=== PATIENT | female | born 1960 | race Caucasian/White ===

== ENCOUNTER 2019-06-02 08:53 | Day surgery (SDC) | payer BC ==
[2019-05-28 11:52] VITALS: BMI 31.8
[~2019-06-02 08:53] MED LIST: LACTATED RINGERS 1,000 ML IV SCH; LIDOCAINE 1% 20 ML VIAL (10MG/ML) FOR IV START INTRADERMA PRN
[2019-06-02 09:16] VITALS: TEMP 98.3
[2019-06-02] MEDS ORDERED: PROPOFOL 10 MG/ML 20 ML VIAL IV ONE (09:57)
[2019-06-02] MEDS ORDERED: LIDOCAINE 1% INJ 10MG/ML (20 ML MDV) ONE (09:57)
--- NOTE | 2019-06-02 09:59 | P.GSHP ---
History of Present Illness H&P Date: 06/02/19 Chief Complaint: GI bleed This is a 58-year-old female referred from. [facility]. Patient's complaints of rectal bleeding. She presents today for colonoscopy. Past Medical History Past Medical History: Hyperlipidemia, Hypertension, Thyroid Disorder Additional Past Medical History / Comment(s): + COLOGARD TEST History of Any Multi-Drug Resistant Organisms: None Reported Past Surgical History: Tubal Ligation Past Anesthesia/Blood Transfusion Reactions: No Reported Reaction Smoking Status: Former smoker - Past Family History Brother(s) Family Medical History: Deep Vein Thrombosis (DVT) Son(s) Family Medical History: Deep Vein Thrombosis (DVT) Medications and Allergies Home Medications Medication Instructions Recorded Confirmed Type Atorvastatin [Lipitor] 10 mg PO HS 05/28/19 06/02/19 History Levothyroxine Sodium [Synthroid] 75 mcg PO DAILY 05/28/19 06/02/19 History Losartan [Cozaar] 25 mg PO HS 05/28/19 06/02/19 History Allergies Allergy/AdvReac Type Severity Reaction Status Date / Time No Known Allergies Allergy Verified 06/02/19 09:12 Surgical - Exam Vital Signs Temp Pulse Resp BP Pulse Ox 98.3 F 92 16 151/104 97 06/02/19 09:15 06/02/19 09:15 06/02/19 09:15 06/02/19 09:15 06/02/19 09:15 - General well developed, well nourished, no distress - Eyes PERRL - ENT normal pinna - Neck no masses - Respiratory normal expansion - Cardiovascular Rhythm: regular - Abdomen Abdomen: soft, non tender Assessment and Plan Assessment: GI bleed. We'll perform colonoscopy.
--- NOTE | 2019-06-02 10:27 | P.OP ---
Date of Procedure: 06/02/19 Preoperative Diagnosis: GI bleed Postoperative Diagnosis: External hemorrhoids Diverticulosis Redundant colon Procedure(s) Performed: Colonoscopy Anesthesia: MAC Surgeon: Arun Smith Pathology: none sent Condition: stable Disposition: PACU Description of Procedure: The patient's placed on the endoscopy table in the lateral position. She received IV sedation. Digital rectal exam was performed which revealed internal and external hemorrhoids. The possible colonoscope was then placed patient anus and passed throughout the entire colon. The ileocecal valve was visually is. The cecum, ascending and transverse colon appeared normal. The colon was quite redundant. In the descending and sigmoid colon there was moderate diverticulosis. There is no evidence of diverticulitis. Scope was then brought back the rectum and this appeared normal. Scope withdrawn for patient.
[2019-06-02 10:41] VITALS: BP 140/80; PULSE 67; RESP 18
== END 2019-06-02 11:00 | disposition home or self-care (01) ==
LOC: ORWHC2ENDO 08:53
PROVIDERS: ATTEND Surgery
DX: K64.4 Residual hemorrhoidal skin tags (principal); K64.8 Other hemorrhoids; K57.30 Diverticulosis of large intestine without perforation or abscess without bleeding; I10 Essential (primary) hypertension; E78.5 Hyperlipidemia, unspecified; E07.9 Disorder of thyroid, unspecified; Z87.891 Personal history of nicotine dependence; Z79.890 Hormone replacement therapy; Z79.899 Other long term (current) drug therapy; Z98.51 Tubal ligation status; Z82.49 Family history of ischemic heart disease and other diseases of the circulatory system
CPT/HCPCS: 45378; J2001; J2704

== ENCOUNTER → 2019-10-03 | Outpatient (CLI) | payer BC ==
--- NOTE | 2019-10-06 10:32 | MM ---
Reason for exam: screening (asymptomatic). Last mammogram was performed 5 years and 11 months ago. History: Patient is postmenopausal. Physical Findings: A clinical breast exam by your physician is recommended on an annual basis and results should be correlated with mammographic findings. MG Screening Mammo w CAD Bilateral CC and MLO view(s) were taken. Prior study comparison: October 29, 2013, [facility] DIGITAL LEFT BREAST MAMMOGRAM w/CAD. October 17, 2013, bilateral digital screening mammo w/CAD. There are scattered fibroglandular densities. There is no discrete abnormality. No significant changes when compared with prior studies. ASSESSMENT: Negative, BI-RAD 1 RECOMMENDATION: Routine screening mammogram of both breasts in 1 year.
== END | disposition home or self-care (01) ==
LOC: RADMAMWWP 09:04
PROVIDERS: ATTEND Family Medicine
DX: Z12.31 Encounter for screening mammogram for malignant neoplasm of breast (principal)
CPT/HCPCS: 77067

== ENCOUNTER → 2020-07-29 | Outpatient (CLI) | payer BC ==
--- NOTE | 2020-07-29 10:59 | XR ---
EXAMINATION TYPE: XR chest 2V DATE OF EXAM: 07/29/2020 COMPARISON: None HISTORY: 59 year-old female shortness of breath TECHNIQUE: Frontal and lateral views FINDINGS: Heart normal size. Mild elongation of the thoracic aorta. Some strandy atelectasis at the left base. No jose consolidation or pleural effusion. IMPRESSION: Some strandy left basilar atelectasis. No definite acute process.
== END | disposition home or self-care (01) ==
LOC: RADXRMAIN 09:41
PROVIDERS: ATTEND Family Medicine
DX: R06.02 Shortness of breath (principal); A48.1 Legionnaires' disease
CPT/HCPCS: 71046

== ENCOUNTER → 2020-09-15 | Outpatient (CLI) | payer BC ==
--- NOTE | 2020-09-15 12:14 | US ---
EXAMINATION TYPE: US pelvis complete transvag DATE OF EXAM: 09/15/2020 COMPARISON: NONE CLINICAL HISTORY: N95.0 Post menopausal bleeding. Intermittent spotting for 2 months TECHNIQUE: Transvaginal (TV) and Transabdominal (TA) . Transabdominal sonographic images of the pel vis were acquired. Transvaginal sonographic images were medically necessary to better assess the fol lowing anatomy: endometrium and ovaries Date of LMP: unknown EXAM MEASUREMENTS: Uterus: 9.8 x 3.5 x 4.4 cm Endometrial Stripe: 0.4 cm Right Ovary: 2.5 x 0.9 x 2.3 cm Left Ovary: 2.3 x 1.4 x 1.4 cm 1. Uterus: Anteverted heterogeneous, possible hypoechoic area posteriorly = 2.5cm 2. Endometrium: appears wnl 3. Right Ovary: appears wnl 4. Left Ovary: appears wnl 5. Bilateral Adnexa: wnl 6. Posterior cul-de-sac: wnl IMPRESSION: Questionable fibroid may be better assessed with pelvic MRI.
== END | disposition home or self-care (01) ==
LOC: RADUSWWP 10:11
PROVIDERS: ATTEND Family Medicine
DX: N95.0 Postmenopausal bleeding (principal)
CPT/HCPCS: 76830; 76856

== ENCOUNTER 2020-11-25 16:33 | Observation (INO) | payer BC ==
[2020-11-25] MEDS ORDERED: ASPIRIN 81 MG PO STA (17:14)
--- NOTE | 2020-11-25 17:17 | ED ---
General Adult HPI - General Chief complaint: Chest Pain Stated complaint: Chest pain/going down both arms Time Seen by Provider: 11/25/20 17:00 Source: patient Mode of arrival: wheelchair Limitations: no limitations - History of Present Illness Initial comments: Dictation was produced using [employer] dictation software. please excuse any grammatical, word or spelling errors. This patient was cared for during a federal and state declared state of e mergency secondary to Covid 19 Chief Complaint: 60-year-old feel presents with chest pain History of Present Illness: 60-year-old female she was told by the nurse practitioner's primary care physician's office come to the emergency department immediately for ACS type chest pain symptoms. Patient states today she has been having chest pressure to her substernal area. She states it radiated to bilateral upper extremities. States she did feel some clamminess however no diaphoresis per she has not had any history of MIs or cardiac disease. She has history of hypertension and high cholesterol. No history of smoking. She states that she's been having on and off episodes symptoms of chest pain. She denies any chest pain currently otherwise she feels well. No shortness of breat h. No family history of cardiac disease. She denies that the pain as sharp and does not radiate to her back. She denies any numbness and paresthesias to her extremities. No shortness of breath or symptoms of pleurisy. The ROS documented in this emergency department record has been reviewed and confirmed by me. Those systems with pertinent positive or negative responses have been documented in the HPI. All other systems are other negative and/or noncontributory. PHYSICAL EXAM: General Impression: Alert and oriented x3, not in acute distress HEENT: Normocephalic atraumatic, extra-ocular movements intact, pupils equal and reactive to light bilaterally, mucous membranes moist. Cardiovascular: Heart regular rate and rhythm Chest: Able to complete full sentences, no retractions, no tachypnea Abdomen: abdomen soft, non-tender, non-distended, no organomegaly Musculoskeletal: Pulses present and equal in all extremities, no peripheral edema Motor: no focal deficits noted Neurological: CN II-XII grossly intact, no focal motor or sensory deficits noted Skin: Intact with no visualized rashes Psych: Normal affect and mood ED course: 60-year-old female presents with chest pain concerning for acute coronary syndrome. Signs upon arrival shows blood pressure 180/100, rest of vital signs within acceptable limits. Patient's symptomatology and physical examination is not consistent with pulmonary embolus or aortic dissection. Symptoms are concerning for acute coronary syndrome. Initial EKG is unremarkable. Patient reports no symptoms at bedside. Laboratory evaluation obtained. CBC, coag panel, metabolic panel is unremarkable. First troponin is negative. Chest x-ray is nonacute. Patient reevaluated at 6:30 PM stable medical condition. She is well-appearing and has not complaining of any chest pain or shortness of breath at this time. Patient will be admitted for serial troponins, medical monitoring and cardiology consultation. Patient is agreeable to disposition. EKG interpretation: Ventricular rate 79, sinus rhythm,. Interval 142, QRS 96, QTC 467. No TX prolongation, no QTC prolongation, no ST or T-wave changes noted. No old EKG for comparison. Overall, this EKG is unremarkable - Related Data Home Medications Medication Instructions Recorded Confirmed Atorvastatin [Lipitor] 10 mg PO HS 05/28/19 11/25/20 Levothyroxine Sodium [Synthroid] 75 mcg PO DAILY 05/28/19 11/25/20 Aspirin 325 mg PO ONETIME PRN 11/25/20 11/25/20 Azithromycin [Zithromax Z-pack (6 See Taper PO DAILY 11/25/20 11/25/20 tabs)] Escitalopram [Lexapro] 10 mg PO HS 11/25/20 11/25/20 Hydrochlorothiazide 12.5 mg PO DAILY 11/25/20 11/25/20 [hydroCHLOROthiazide] Losartan Potassium [Cozaar] 100 mg PO DAILY 11/25/20 11/25/20 Allergies Allergy/AdvReac Type Severity Reaction Status Date / Time No Known Allergies Allergy Verified 11/25/20 17:48 Review of Systems ROS Statement: Those systems with pertinent positive or pertinent negative responses have been documented in the HPI. ROS Other: All systems not noted in ROS Statement are negative. Past Medical History Past Medical History: Hyperlipidemia, Hypertension, Thyroid Disorder Additional Past Medical History / Comment(s): + COLOGARD TEST History of Any Multi-Drug Resistant Organisms: None Reported Past Surgical History: Tubal Ligation Past Anesthesia/Blood Transfusion Reactions: No Reported Reaction Past Psychological History: Anxiety Smoking Status: Never smoker Past Alcohol Use History: None Reported Past Drug Use History: None Reported - Past Family History Brother(s) Family Medical History: Deep Vein Thrombosis (DVT) Son(s) Family Medical History: Deep Vein Thrombosis (DVT) General Exam Limitations: no limitations Course Vital Signs 11/25/20 16:40 Temperature 98.2 F Pulse Rate 100 Respiratory 18 Rate Blood Pressure 180/100 O2 Sat by Pulse 97 Oximetry Medical Decision Making - Lab Data Result diagrams: 11/25/20 17:16 11/25/20 17:16 Lab Results 11/25/20 11/25/20 11/25/20 Range/Units 17:16 17:16 17:16 WBC 5.2 (3.8-10.6) k/uL RBC 5.27 (3.80-5.40) m/uL Hgb 15.9 (11.4-16.0) gm/dL Hct 47.3 H (34.0-46.0) % MCV 89.8 (80.0-100.0) fL MCH 30.1 (25.0-35.0) pg MCHC 33.5 (31.0-37.0) g/dL RDW 12.6 (11.5-15.5) % Plt Count 269 (150-450) k/uL MPV 7.5 Neutrophils % 64 % Lymphocytes % 26 % Monocytes % 7 % Eosinophils % 2 % Basophils % 1 % Neutrophils # 3.3 (1.3-7.7) k/uL Lymphocytes # 1.4 (1.0-4.8) k/uL Monocytes # 0.3 (0-1.0) k/uL Eosinophils # 0.1 (0-0.7) k/uL Basophils # 0.0 (0-0.2) k/uL PT 10.3 (9.0-12.0) sec INR 1.0 (<1.2) APTT 23.7 (22.0-30.0) sec Sodium 138 (137-145) mmol/L Potassium 3.9 (3.5-5.1) mmol/L Chloride 103 (98-107) mmol/L Carbon Dioxide 25 (22-30) mmol/L Anion Gap 10 mmol/L BUN 16 (7-17) mg/dL Creatinine 0.82 (0.52-1.04) mg/dL Est GFR (CKD-EPI)AfAm 89 (>60 ml/min/1.73 sqM) Est GFR (CKD-EPI)NonAf 77 (>60 ml/min/1.73 sqM) Glucose 112 H (74-99) mg/dL Calcium 10.0 (8.4-10.2) mg/dL Magnesium 2.3 (1.6-2.3) mg/dL Total Bilirubin 0.7 (0.2-1.3) mg/dL AST 27 (14-36) U/L ALT 27 (4-34) U/L Alkaline Phosphatase 135 H (38-126) U/L Troponin I (0.000-0.034) ng/mL Total Protein 7.8 (6.3-8.2) g/dL Albumin 4.5 (3.5-5.0) g/dL Lipase 54 (23-300) U/L 11/25/20 Range/Units 17:16 WBC (3.8-10.6) k/uL RBC (3.80-5.40) m/uL Hgb (11.4-16.0) gm/dL Hct (34.0-46.0) % MCV (80.0-100.0) fL MCH (25.0-35.0) pg MCHC (31.0-37.0) g/dL RDW (11.5-15.5) % Plt Count (150-450) k/uL MPV Neutrophils % % Lymphocytes % % Monocytes % % Eosinophils % % Basophils % % Neutrophils # (1.3-7.7) k/uL Lymphocytes # (1.0-4.8) k/uL Monocytes # (0-1.0) k/uL Eosinophils # (0-0.7) k/uL Basophils # (0-0.2) k/uL PT (9.0-12.0) sec INR (<1.2) APTT (22.0-30.0) sec Sodium (137-145) mmol/L Potassium (3.5-5.1) mmol/L Chloride (98-107) mmol/L Carbon Dioxide (22-30) mmol/L Anion Gap mmol/L BUN (7-17) mg/dL Creatinine (0.52-1.04) mg/dL Est GFR (CKD-EPI)AfAm (>60 ml/min/1.73 sqM) Est GFR (CKD-EPI)NonAf (>60 ml/min/1.73 sqM) Glucose (74-99) mg/dL Calcium (8.4-10.2) mg/dL Magnesium (1.6-2.3) mg/dL Total Bilirubin (0.2-1.3) mg/dL AST (14-36) U/L ALT (4-34) U/L Alkaline Phosphatase (38-126) U/L Troponin I <0.012 (0.000-0.034) ng/mL Total Protein (6.3-8.2) g/dL Albumin (3.5-5.0) g/dL Lipase (23-300) U/L Disposition Clinical Impression: Chest pain Disposition: ADMITTED IP TO THIS HOSP Condition: Fair Referrals: Nick Marlow DO [Primary Care Provider] - 1-2 days Decision Time: 18:34
[2020-11-25 17:27] LABS: Basophils % (A) 1 %; Eosinophils # (A) 0.1 k/uL (0-0.7); Eosinophils % (A) 2 %; HCT 47.3 % (34.0-46.0); HGB 15.9 gm/dL (11.4-16.0); Lymphocytes # (A) 1.4 k/uL (1.0-4.8); Lymphocytes % (A) 26 %; MCH 30.1 pg (25.0-35.0); MCHC 33.5 g/dL (31.0-37.0); MCV 89.8 fL (80.0-100.0); Mean Platelet Volume 7.5; Monocytes # (A) 0.3 k/uL (0-1.0); Monocytes % (A) 7 %; Neutrophils # (A) 3.3 k/uL (1.3-7.7); Neutrophils % (A) 64 %; Platelet Count 269 k/uL (150-450); RBC 5.27 m/uL (3.80-5.40); RDW 12.6 % (11.5-15.5); WBC 5.2 k/uL (3.8-10.6)
[2020-11-25 17:35] LABS: Partial Thromboplastin Time 23.7 sec (22.0-30.0); Prothrombin Time 10.3 sec (9.0-12.0)
--- NOTE | 2020-11-25 17:35 | XR ---
EXAMINATION TYPE: XR chest 2V DATE OF EXAM: 11/25/2020 COMPARISON: 07/29/2020. HISTORY: Chest pain. TECHNIQUE: Frontal and lateral views of the chest are obtained. FINDINGS: There is no focal air space opacity, pleural effusion, or pneumothorax seen. Tortuous aort a seen. The cardiac silhouette size is within normal limits. The osseous structures are intact. IMPRESSION: No acute cardiopulmonary process.
[2020-11-25 17:37] LABS: Albumin 4.5 g/dL (3.5-5.0); Magnesium 2.3 mg/dL (1.6-2.3); Potassium 3.9 mmol/L (3.5-5.1); Total Bilirubin 0.7 mg/dL (0.2-1.3); Total Protein 7.8 g/dL (6.3-8.2)
[2020-11-25] MEDS ORDERED: NITROGLYCERIN SL TABS 0.4 MG TAB SUBLINGUAL PRN (18:32)
[2020-11-26 07:30] LABS: Glucose,Whole Blood 100 mg/dL (75-99)
[2020-11-26 07:34] VITALS: TEMP 98
[2020-11-26 09:00] VITALS: RESP 16
[2020-11-26] MEDS ORDERED: ASPIRIN 325 MG TAB PO SCH (09:00)
[2020-11-26] MEDS ORDERED: DOBUTamine DRIP for NUC MED 500 MG in DEXTROSE/WATER 1 250ML.BAG IV PRN (09:28)
[2020-11-26] MEDS ORDERED: PANTOPRAZOLE 40 MG/10 ML VIAL IVP SCH (09:45)
--- NOTE | 2020-11-26 10:00 | P.HPIM ---
History of Present Illness H&P Date: 11/26/20 Chief Complaint: Chest pain This is a 60-year-old female with past medical history of hyperlipidemia, hypertension, hypothyroidism, anxiety presents to the ER with complaints of chest pain. Patient had seen her PCP on Sunday, hydrochlorothiazide added to her medication regimen. Developed some anxiety over her new medication and later developed fluctuating chest pain, described as a "squeezing chest sensation" initiating in the right-sided chest, going across to the left side and down bilateral arms accompanied by shortness of breath, lightheadedness and dizziness, no diaphoresis. Denies cough, congestion. Denies nausea vomiting or diarrhea. Denies abdominal pain. Denies syncope. Chest x-ray reporting no acute cardiopulmonary process, EKG sinus rhythm with PACs, left axis deviation. Troponin is negative 3. Hematology, coagulation profiles unremarkable. Sodium 138, potassium 3.9, BUN 16, creatinine 0.82, glucose 112. Magnesium 2.3. Alk phos 135. Coronavirus not detected. Afebrile, normal WBC. Uncontrolled hypertension on admission with blood pressure 180/100, heart rate 80-100. Respiratory rate 16-18, maintaining O2 sats in the high 90s on room air. Review of Systems ROS Statement: Those systems with pertinent positive or pertinent negative responses have been documented in the HPI. ROS Other: All systems not noted in ROS Statement are negative. Past Medical History Past Medical History: Hyperlipidemia, Hypertension, Thyroid Disorder Additional Past Medical History / Comment(s): + COLOGARD TEST History of Any Multi-Drug Resistant Organisms: None Reported Past Surgical History: Tubal Ligation Past Anesthesia/Blood Transfusion Reactions: No Reported Reaction Past Psychological History: Anxiety Smoking Status: Never smoker Past Alcohol Use History: None Reported Past Drug Use History: None Reported - Past Family History Brother(s) Family Medical History: Deep Vein Thrombosis (DVT) Son(s) Family Medical History: Deep Vein Thrombosis (DVT) Medications and Allergies Home Medications Medication Instructions Recorded Confirmed Type Atorvastatin [Lipitor] 10 mg PO HS 05/28/19 11/25/20 History Levothyroxine Sodium [Synthroid] 75 mcg PO DAILY 05/28/19 11/25/20 History Aspirin 325 mg PO ONETIME PRN 11/25/20 11/25/20 History Azithromycin [Zithromax Z-pack (6 See Taper PO DAILY 11/25/20 11/25/20 History tabs)] Escitalopram [Lexapro] 10 mg PO HS 11/25/20 11/25/20 History Hydrochlorothiazide 12.5 mg PO DAILY 11/25/20 11/25/20 History [hydroCHLOROthiazide] Losartan Potassium [Cozaar] 100 mg PO DAILY 11/25/20 11/25/20 History Allergies Allergy/AdvReac Type Severity Reaction Status Date / Time No Known Allergies Allergy Verified 11/25/20 17:48 Physical Exam Vitals: Vital Signs Temp Pulse Pulse Resp BP BP Pulse Ox 11/26/20 08:58 80 16 129/85 96 11/26/20 08:40 87 18 129/84 96 11/26/20 07:32 98 F 79 18 141/86 97 11/26/20 06:14 78 16 134/89 97 11/25/20 22:00 75 16 125/94 98 11/25/20 19:22 88 16 161/99 97 11/25/20 16:40 98.2 F 100 18 180/100 97 Intake and Output 11/25/20 11/26/20 11/26/20 22:59 06:59 14:59 Other: Weight 86.183 kg PHYSICAL EXAM: VITAL SIGNS: [As above] GENERAL: Sitting up in stretcher, no acute distress, mild anxiety HEENT: Conjunctivae normal. eyes normal. NECK: No JVD. No thyroid enlargement. No LNs CARDIOVASCULAR: S1, S2 regular. No murmur RESPIRATION: Breath sounds diminished in the bases. No rhonchi or crackles. No bronchial breathing. ABDOMEN: Soft, nontender . No guarding. no masses palpable. No ascites, No hepatosplenomegaly.Bowel sounds heard. LEGS: No edema. no swelling PSYCHIATRY: Alert and oriented X3, mood and affect normal. NERVOUS SYSTEM: Cranial N 2-12 grossly normal. Moves all 4 limbs. No focal deficits. Strength and sensation grossly intact.. Skin: Warm and dry, no rash Lymphatic system. No LN neck axilla. Results CBC & Chem 7: 11/25/20 17:16 11/25/20 17:16 Labs: Abnormal Lab Results - Last 24 Hours (Table) 11/25/20 11/25/20 11/26/20 Range/Units 17:16 17:16 07:29 Hct 47.3 H (34.0-46.0) % Glucose 112 H (74-99) mg/dL POC Glucose (mg/dL) 100 H (75-99) mg/dL Alkaline Phosphatase 135 H (38-126) U/L Assessment and Plan Assessment: Chest pain, ruling out acute coronary syndrome Hypertension, uncontrolled on admission Hyperlipidemia Anxiety Plan: Continue on current medication regime ,monitoring and symptomatic treatment. Cardiology consult in place. Potential discharge home later this afternoon, pending cardiology recommendations. The impression and plan of care has been dictated as directed. : I performed a history and examination of this patient, discussed the same with the dictator. I agree with the dictator's note ,documented as a scribe. Any additional findings or plans will be noted.
--- NOTE | 2020-11-26 10:30 | CONS ---
CONSULTATION Mrs. Neves is a 60-year-old female with history of hyperlipidemia who presented to the emergency room with symptoms of chest discomfort. The discomfort occurred at rest and lasted for couple hours, was not associated with any other symptoms. She denies any dizziness or palpitation. She denies any syncope. She has no peripheral edema. She is not very active physically, but has no significant exertional chest discomfort. Her breathing is stable. She has no prior history of cardiac disease. She is pain free at the time my evaluation. She has no recent cardiac workup. She has a history of hyperlipidemia. She is a nonsmoker, nondiabetic and has a history of hypertension. MEDICATIONS: Her medications at home include Lipitor 10 mg daily, levothyroxine, Lexapro 10 mg daily, hydrochlorothiazide 12.5 mg daily, losartan 100 mg daily and aspirin once a day. REVIEW OF SYSTEMS: RESPIRATORY SYSTEM: She has no documented history of recent wheezing or cough. No history of documented obstructive lung disease. GI SYSTEM: No recent GI bleeding. No peptic ulcer disease. SYSTEM: No dysuria or hematuria. NERVOUS SYSTEM: No stroke or seizure. PHYSICAL EXAMINATION: A 60-year-old female, alert, oriented, in no apparent distress. Blood pressure 129/80 with the heart rate in the 80s. HEAD: Normocephalic. EYES: Sclerae anicteric. NECK: Good carotid upstroke. No bruit. No jugular venous distention. LUNGS: Clear to auscultation. HEART: Regular rate and rhythm. S1, S2. No S3. No rub or gallop. ABDOMEN: Soft and nontender. Positive bowel sounds. No organomegaly. EXTREMITIES: No edema. Intact distal pulses. LAB DATA: Lab data revealed a troponin of less than 0.012 for 3 samples. Her EKG revealed sinus mechanism with no acute ST-segment changes. Her potassium 3.9. BUN and creatinine 16 and 0.82. Hemoglobin of 15.9. Her chest x-ray shows no acute infiltrate. IMPRESSION: 1. Chest discomfort of unclear etiology, atypical for ischemic heart disease. 2. Hypertension. 3. Hyperlipidemia. RECOMMENDATION: I recommend proceeding with an echocardiogram and dobutamine stress echo to further evaluate her status and guide her treatment. Depending on the results of testing, further recommendation will be made. Thank you for this consult. We will follow with you. MMODL / IJN: [id number] /
[2020-11-26 11:07] LABS: Chol/HDL Ratio 2.81
--- NOTE | 2020-11-26 12:01 | ECHOF ---
Referral Reason:cp MEASUREMENTS -------- HEIGHT: 160.0 cm WEIGHT: 86.2 kg BP: RVIDd: 3.2 cm (< 3.3) IVSd: 1.1 cm (0.6 - 1.1) LVIDd: 4.5 cm (3.9 - 5.3) LVPWd: 1.0 cm (0.6 - 1.1) IVSs: 1.2 cm LVIDs: 3.1 cm LVPWs: 1.4 cm LA Diam: 3.5 cm (2.7 - 3.8) LAESV Index (A-L): 16.31 ml/m Ao Diam: 3.0 cm (2.0 - 3.7) AV Cusp: 1.6 cm (1.5 - 2.6) MV EXCURSION: 11.106 mm (> 18.000) MV EF SLOPE: 38 mm/s (70 - 150) EPSS: 1.0 cm MV E Gregg: 0.52 m/s MV DecT: 260 ms MV A Gregg: 1.04 m/s MV E/A Ratio: 0.50 RAP: 5.00 mmHg RVSP: 15.03 mmHg FINDINGS -------- Sinus rhythm. This was a technically adequate study. LV size, wall thickness and systolic function are normal, with an EF greater than 55%. The left gaby tricular size is normal. The diastolic filling pattern is normal for the age of the patient 9.59. The right ventricle is normal in size. Normal LA size by volume 22+/-6 ml/m2. The right atrial size is normal. The aortic valve is trileaflet, and appears structurally normal. No aortic stenosis or regurgitation. The mitral valve is normal. Mild mitral regurgitation is present. The tricuspid valve appears structurally normal. Mild tricuspid regurgitation present. Right vent ricular systolic pressure is normal at < 35 mmHg. There is no pulmonic regurgitation present. The aortic root size is normal. There is no pericardial effusion. CONCLUSIONS -------- 1. LV size, wall thickness and systolic function are normal, with an EF greater than 55%. 2. Normal LA size by volume 22+/-6 ml/m2. 3. The aortic valve is trileaflet, and appears structurally normal. No aortic stenosis or regurgitati on. 4. Mild mitral regurgitation is present. 5. Mild tricuspid regurgitation present. 6. There is no pericardial effusion. STUDY LEAD: Mag Wong RDCS
[2020-11-26 14:05] VITALS: BP 132/78; PULSE 61
[2020-11-26] MEDS ORDERED: ESCITALOPRAM 10 MG TAB PO SCH (21:00)
[2020-11-26] MEDS ORDERED: ATORVASTATIN 10 MG TAB PO SCH (21:00)
[2020-11-27] MEDS ORDERED: LEVOTHYROXINE 75 MCG TAB PO SCH (06:30)
[2020-11-27] MEDS ORDERED: ASPIRIN 81 MG PO SCH (09:00)
[2020-11-27] MEDS ORDERED: hydroCHLOROthiazide 12.5 MG CAP PO SCH (09:00)
[2020-11-27] MEDS ORDERED: LOSARTAN 50 MG TAB PO SCH (09:00)
--- NOTE | 2020-11-29 07:58 | ECHOS ---
STRESS ECHOCARDIOGRAM LUMASON: N/A Vial INDICATIONS: Chest pain MEDICATIONS: BASELINE HEART RATE: 64 BASELINE BLOOD PRESSURE: 104/71 MAXIMUM HEART RATE: 136 MAXIMUM BLOOD PRESSURE: 137/68 85% MPHR: 134 100% MPHR: 158 METS: N/A MAXIMUM STAGE REACHED: 3 TOTAL EXERCISE TIME: 11:10 infusion time CLINICAL INFORMATION: Baseline rhythm is sinus mechanism, rate of 64, left axis deviation, poor R progression. Baseline blood pressure 104/71 mmHg. Patient received infusion of dobutamine per protocol, peak rate 136 beats per minute which is equal to 86% maximum predicted heart rate. Peak blood pressure 137/68 mmHg. Electrocardiograph monitoring revealed no evidence of diagnostic ischemic ST deviation. Baseline echocardiogram revealed normal wall motion. At peak infusion, there was normal wall motion augmentation with no hypokinesis or dyskinesis. CONCLUSION: 1. Normal electrocardiograph response to dobutamine infusion. 2. Normal stress echocardiogram with no evidence of stress-induced ischemia. MMODL / IJN: [id number] /
== END 2020-11-26 14:51 | disposition home or self-care (01) ==
LOC: EC 16:33 → 6NMEDSUR 18:32
PROVIDERS: ADMIT Family Medicine; ATTEND Family Medicine
DX: R07.89 Other chest pain (principal); I10 Essential (primary) hypertension; E78.5 Hyperlipidemia, unspecified; F41.9 Anxiety disorder, unspecified; E78.00 Pure hypercholesterolemia, unspecified; E03.9 Hypothyroidism, unspecified; R06.02 Shortness of breath; R42 Dizziness and giddiness; R19.5 Other fecal abnormalities; Z79.890 Hormone replacement therapy; Z79.82 Long term (current) use of aspirin; Z79.899 Other long term (current) drug therapy; Z98.51 Tubal ligation status; Z20.828 Contact with and (suspected) exposure to other viral communicable diseases; Z82.49 Family history of ischemic heart disease and other diseases of the circulatory system
CPT/HCPCS: 96374; 99285; 36415; 93005 ×2; 93306; 93351; 80061; 80053; 83690; 83735; 84484; 85025; 85610; 85730; 87635; 71046; G0378 ×2; J1250; C9113

== ENCOUNTER 2023-07-20 16:30 | Emergency (ER) | payer BC ==
[2023-07-20 17:05] VITALS: TEMP 98.2
[2023-07-20] MEDS ORDERED: KETOROLAC 15 MG/ML 1 ML VIAL IM STA (18:42)
--- NOTE | 2023-07-20 19:23 | CT ---
EXAMINATION TYPE: CT brain cspine wo con CT DLP: 1424.3 mGycm, Automated exposure control for dose reduction was used. DATE OF EXAM: 07/20/2023 7:13 PM COMPARISON: None. CLINICAL INDICATION:Female, 62 years old with history of fall on thinners; pain after fall. RT black eye TECHNIQUE: Brain: Multiple axial CT images of the brain were obtained without IV contrast. Cspine: Axial CT images from the skull base to the inferior aspect of T2 we obtained without intraven ous contrast. Coronal and sagittal reformatted images were also reviewed. FINDINGS: Brain: Extra-axial spaces: No abnormal extra-axial fluid collections. Ventricular system: Within normal limits Cerebral parenchyma: No acute intraparenchymal hemorrhage or mass effect. The hernández-white junction is well differentiated. Cerebellum: Unremarkable. Mass effect: No evidence of midline shift. Intracranial vasculature: unremarkable Soft tissues: Normal. Calvarium/osseous structures: No depressed skull fracture. Paranasal sinuses and mastoid air cells: Clear. Visualized orbits: Orbital contents are intact. Periorbital soft tissue swelling on the right orbit. Cervical spine: Fracture: None. Osseous structures: Multilevel degenerative disc disease changes with endplate spurring and disc oste ophyte complex's. Vertebral alignment: Within normal limits. Spinal canal/Neural Foramina: Disc osteophyte complexes at C5-C6 with at least mild spinal canal sten osis. Facet joint uncovertebral joint arthropathy scattered throughout the cervical spine with varyin g degrees of neural foraminal stenosis. Neck soft tissues: Prevertebral soft tissues are within normal limits. Other: The airway is patent. The lung apices are clear. IMPRESSION: 1. No acute intracranial process. 2. Right periorbital soft tissue edema/hematoma without evidence of fracture. The globes intact. 3. No evidence of cervical spine fracture. 4. Mild multilevel degenerative disc disease.
--- NOTE | 2023-07-20 19:42 | XR ---
EXAMINATION TYPE: XR wrist complete RT, XR hand complete RT DATE OF EXAM: 07/20/2023 7:20 PM CLINICAL INDICATION:Female, 62 years old with history of s/p fall, pain; [facility] COMPARISON: None TECHNIQUE: right wrist and hand was examined in the. Frontal, navicular, lateral, and oblique. FINDINGS/IMPRESSION: Findings suggestive nondisplaced intra-articular radial fracture including the radial styloid process . Best appreciated on lateral view. No additional fractures. There is soft tissue swelling.
[2023-07-20] MEDS ORDERED: LIDOCAINE 2%-EPI 1:100,000 20 ML VIAL SQ STA (19:52)
--- NOTE | 2023-07-20 19:59 | ED ---
Fall HPI - General Chief Complaint: Fall Stated Complaint: Fall,Hit Head-No Thinners Time Seen by Provider: 07/20/23 18:30 Source: patient Mode of arrival: ambulatory - History of Present Illness Initial Comments: 62-year-old female presenting to the ED with a chief complaint of fall. Patient states that she lost her footing and fell forward onto concrete. Patient did hit her head however reports that she was able to catch herself with her hands. Now notes a laceration above her right eye with some bruising, headache, right wrist pain. No LOC at this time. No other injuries at this time. Per at bedside, patient is acting appropriately. No nausea or vomiting. No chest pain or shortness of breath. No other complaints. - Related Data Home Medications Medication Instructions Recorded Confirmed Atorvastatin [Lipitor] 10 mg PO HS 05/28/19 11/25/20 Levothyroxine Sodium [Synthroid] 75 mcg PO DAILY 05/28/19 11/25/20 Aspirin 325 mg PO ONETIME PRN 11/25/20 11/25/20 Azithromycin [Zithromax Z-pack (6 See Taper PO DAILY 11/25/20 11/25/20 tabs)] Escitalopram [Lexapro] 10 mg PO HS 11/25/20 11/25/20 Losartan Potassium [Cozaar] 100 mg PO DAILY 11/25/20 11/25/20 hydroCHLOROthiazide 12.5 mg PO DAILY 11/25/20 11/25/20 Previous Rx's Medication Instructions Recorded Acetaminophen Tab [Tylenol] 500 mg PO Q6H #30 tablet 07/20/23 Ibuprofen 600 mg PO Q6H #30 tab 07/20/23 Allergies Allergy/AdvReac Type Severity Reaction Status Date / Time No Known Allergies Allergy Verified 07/20/23 16:57 Review of Systems ROS Statement: Those systems with pertinent positive or pertinent negative responses have been documented in the HPI. ROS Other: All systems not noted in ROS Statement are negative. Past Medical History Past Medical History: Hyperlipidemia, Hypertension, Thyroid Disorder Additional Past Medical History / Comment(s): + COLOGARD TEST History of Any Multi-Drug Resistant Organisms: None Reported Past Surgical History: Tubal Ligation Past Anesthesia/Blood Transfusion Reactions: No Reported Reaction Past Psychological History: Anxiety Smoking Status: Never smoker Past Alcohol Use History: None Reported Past Drug Use History: None Reported - Past Family History Brother(s) Family Medical History: Deep Vein Thrombosis (DVT) Son(s) Family Medical History: Deep Vein Thrombosis (DVT) General Exam Limitations: no limitations General appearance: alert, in no apparent distress Head exam: Present: other (No vaca signs or raccoons eyes) Eye exam: Present: PERRL, EOMI, other (Periorbital ecchymosis and swelling with approximately 3 cm laceration above the right eye brow) Neck exam: Present: other (No midline cervical spinal tenderness to palpation.) Respiratory exam: Present: normal lung sounds bilaterally Cardiovascular Exam: Present: regular rate, normal rhythm GI/Abdominal exam: Present: soft Extremities exam: Present: other (Strength and sensation equal and symmetric in bilateral upper and lower extremities.) Neurological exam: Present: alert, oriented X3 Skin exam: Present: warm, dry Course Vital Signs 07/20/23 16:54 Temperature 98.2 F Pulse Rate 78 Respiratory 20 Rate Blood Pressure 137/83 O2 Sat by Pulse 99 Oximetry Procedures - Laceration Laceration #1 Site: face Size (cm): 3 Description: linear Depth: simple, single layer Anesthetic Used: lidocaine 2%, without epi Anesthesia Technique: local infiltration Amount (mls): 2 Type of Sutures: nylon Size of Sutures: 6-0 Number of Sutures: 3 Technique: simple, interrupted Patient Tolerated Procedure: well, no complications - Orthopedic Splinting/Casting Injury #1 Upper Extremity Immobilizer: volar splint Additional Comments: Neurovascularly intact after splint placement. Medical Decision Making - Medical Decision Making Was pt. sent in by a medical professional or institution (, PA, INSTALLMENT DEALER, urgent care, hospital, or shelter...) When possible be specific @ -No Did you speak to anyone other than the patient for history (EMS, parent, family, police, friend...)? What history was obtained from this source @ -Spoke to the patient's who reports that the patient is acting her normal self. Did you review nursing and triage notes (agree or disagree)? Why? @ -I reviewed and agree with nursing and triage notes Were old charts reviewed (outside hosp., previous admission, EMS record, old EKG, old radiological studies, urgent care reports/EKG's, shelter records)? Report findings @ -No old charts were reviewed Differential Diagnosis (chest pain, altered mental status, abdominal pain women, abdominal pain men, vaginal bleeding, weakness, fever, dyspnea, syncope, headache, dizziness, GI bleed, back pain, seizure, CVA, palpatations, mental health, musculoskeletal)? @ -Acute fracture, acute bleed. This is not meant to be an all-inclusive list. EKG interpreted by me (3pts min.). @ -None X-rays interpreted by me (1pt min.). @ -X-ray interpreted by me. X-ray of the right wrist/hand significant for nondisplaced radius fracture. CT interpreted by me (1pt min.). @ -None done U/S interpreted by me (1pt. min.). @ -None done What testing was considered but not performed or refused? (CT, X-rays, U/S, labs)? Why? @ -None What meds were considered but not given or refused? Why? @ -None Did you discuss the management of the patient with other professionals (professionals i.e. , PA, INSTALLMENT DEALER, lab, RT, psych nurse, high school social studies teacher, camp coordinator, teacher, targeting acquisition officer, rn case management)? Give summary @ -No Was smoking cessation discussed for >3mins.? @ -No Was critical care preformed (if so, how long)? @ -No Were there social determinants of health that impacted care today? How? (Homelessness, low income, unemployed, alcoholism, drug addiction, transportation, low edu. Level, literacy, decrease access to med. care, long-term, rehab)? @ -No Was there de-escalation of care discussed even if they declined (Discuss DNR or withdrawal of care, Hospice)? DNR status @ -No What co-morbidities impacted this encounter? (DM, HTN, Smoking, COPD, CAD, Cancer, CVA, ARF, Chemo, Hep., AIDS, mental health diagnosis, sleep apnea, morbid obesity)? @ -None Was patient admitted / discharged? Hospital course, mention meds given and route, prescriptions, significant lab abnormalities, going to OR and other pertinent info. @ -Discharge 62-year-old female presenting status post mechanical fall now with complaints of headache and right wrist pain. CT brain and C-spine showed no evidence of bleed or other acute finding. X-ray of the wrist and hand is significant for nondisplaced radius fracture. Placed in volar splint. Patient had laceration above right eyebrow. This was also repaired. Please see procedure notes for further details. Tetanus status up-to-date. Discharged home with referral to orthopedics. Discussed return precautions patient verbalizes agreement. Undiagnosed new problem with uncertain prognosis? @ -No Drug Therapy requiring intensive monitoring for toxicity (Heparin, Nitro, Insulin, Cardizem)? @ -No Were any procedures done? @ -No Diagnosis/symptom? @ -s/p mechanical fall, laceration, nondisplaced right radius fracture. Acute, or Chronic, or Acute on Chronic? @ -Acute Uncomplicated (without systemic symptoms) or Complicated (systemic symptoms)? @ -Uncomplicated Side effects of treatment? @ -No Exacerbation, Progression, or Severe Exacerbation? @ -No Poses a threat to life or bodily function? How? (Chest pain, [place], [place], pneumonia, PE, COPD, DKA, ARF, appy, cholecystitis, CVA, Diverticulitis, Homicidal, Suicidal, threat to staff... and all critical care pts) @ -No Disposition Clinical Impression: Radius fracture, Laceration Disposition: HOME SELF-CARE Condition: Good Additional Instructions: Please return to the Emergency Department if symptoms worsen or any other concerns. Please return in 4-5 days for suture removal. Please follow up with orthopedics. Prescriptions: Ibuprofen 600 mg PO Q6H #30 tab Acetaminophen Tab [Tylenol] 500 mg PO Q6H #30 tablet Is patient prescribed a controlled substance at d/c from ED?: No Referrals: Nick Marlow DO [Primary Care Provider] - 1-2 days Time of Disposition: 20:50
[2023-07-20] MEDS ORDERED: BACITRACIN OINT 1 EACH PACKET TOPICAL ONE (20:50)
[2023-07-20] MEDS ORDERED: ACET/COD 300 MG/30 MG STARTER PACK 6 TAB BTL PO STA (20:50)
[2023-07-20 21:20] VITALS: BP 123/81; PULSE 67; RESP 18
== END 2023-07-20 21:15 | disposition home or self-care (01) ==
LOC: EC 16:30
DX: S52.514A Nondisplaced fracture of right radial styloid process, initial encounter for closed fracture (principal); S01.111A Laceration without foreign body of right eyelid and periocular area, initial encounter; I10 Essential (primary) hypertension; E07.9 Disorder of thyroid, unspecified; E78.5 Hyperlipidemia, unspecified; F41.9 Anxiety disorder, unspecified; Z79.890 Hormone replacement therapy; Z79.82 Long term (current) use of aspirin; Z79.899 Other long term (current) drug therapy; W18.09XA Striking against other object with subsequent fall, initial encounter
CPT/HCPCS: 73110; 73130; 72125; 70450; 12013; 99284; 96372; J1885

== ENCOUNTER → 2023-07-25 | Outpatient (CLI) | payer BC ==
--- NOTE | 2023-07-25 13:07 | CT ---
EXAMINATION TYPE: CT wrist RT wo con DATE OF EXAM: 07/25/2023 COMPARISON: Radiograph 07/20/2023 HISTORY: 62-year-old female fall, evaluate fracture of right wrist. [id number] UNSP FRACTURE OF NAVICUL AR BONE OF RIGHT WRIST, INIT TECHNIQUE: Contiguous axial scanning of the right wrist without IV contrast. Coronal and sagittal rec onstructions performed. 3-D reconstructions generated on a dedicated independent workstation. CT DLP: 110.10 mGycm Automated exposure control for dose reduction was used. FINDINGS: Small cystic change at the ulnar proximal aspect of the lunate bone. Tiny corticated ossicle adjacent to the ulnar styloid process could represent an accessory ossicle or sequela of old injury. There is a oblique fracture involving the radial styloid process with intra-articular extension to th e radioscaphoid joint. No significant incongruence of the articular surface. Separation up to 3 mm, a xial image 36. There is moderate degenerative change of the first CMC and triscaphe joints. Slight prominence to the scapholunate interval could represent an underlying ligamentous sprain. No additional acute fractures identified. The patient is in a fiberglass cast. IMPRESSION: 1. OBLIQUE FRACTURE INVOLVING THE RADIAL STYLOID PROCESS WITH INTRA-ARTICULAR EXTENSION ALONG THE RAD IOSCAPHOID JOINT. NO SIGNIFICANT ARTICULAR SURFACE INCONGRUITY. MINIMAL SEPARATION OF THE 3 MM. 2. SLIGHT PROMINENCE TO THE SCAPHOLUNATE INTERVAL COULD REPRESENT AN UNDERLYING LIGAMENTOUS SPRAIN. 3. 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 4. SOME SUBTLE BONY CHANGES MAY REFLECT ULNAR IMPACTION SYNDROME. IN ADDITION, TINY CORTICATED OSSIFI C DENSITY ADJACENT TO THE ULNAR STYLOID PROCESS COULD REPRESENT AN ACCESSORY OSSICLE VERSUS SEQUELA O F PRIOR INJURY.
== END | disposition home or self-care (01) ==
LOC: RADCTMAIN 10:10
PROVIDERS: ATTEND Orthopaedic Surgery
DX: S62.001A Unspecified fracture of navicular [scaphoid] bone of right wrist, initial encounter for closed fracture (principal); S52.511A Displaced fracture of right radial styloid process, initial encounter for closed fracture; S62.111A Displaced fracture of triquetrum [cuneiform] bone, right wrist, initial encounter for closed fracture; M19.031 Primary osteoarthritis, right wrist